=== PATIENT | female | born 1985 | race Asian ===

== ENCOUNTER 2020-12-05 17:27 | Emergency (ER) | payer OTHER, SELFPAY ==
--- NOTE | 2020-12-05 19:44 | PC.NURSE ---
CALLED PATIENT AT 1915 & 1930 FOR TRIAGE, NO RESPONSE.
== END 2020-12-05 21:08 | disposition left against medical advice (07) ==
PROVIDERS: Emergency Provider Emergency Medicine
DX: R10.9 Unspecified abdominal pain (principal)

== ENCOUNTER 2023-02-03 00:08 | Emergency (ER) | payer OTHER, SELFPAY ==
--- NOTE | ~2023-02-03 | CT_ITS ---
EXAMINATION: CT ABDOMEN AND PELVIS WITH CONTRAST CLINICAL INFORMATION: Possible abscess rectum 6:00 status post fissure surgery COMPARISON: 12/10/2019 TECHNIQUE: Multidetector volumetric images were obtained from the superior aspect of the liver through the pubic symphysis following administration 85 mL of Omnipaque 350 intravenous contrast. Sagittal and coronal reformatted images were obtained on the technologist's workstation. Oral contrast: No This CT examination was performed using dose optimization techniques as appropriate, variously including the following: *Automated exposure control *Adjustment of mA and/or kV according to patient size (this includes techniques or standardized protocols for targeted exams where dose is matched to indication/reason for exam; i.e. extremities or head) *Use of iterative reconstruction technique DLP: 691 mGy-cm FINDINGS: LUNG BASES: The visualized lung bases are unremarkable. LIVER, GALLBLADDER, AND BILIARY TREE: The liver is normal in size, shape, and attenuation. No focal hepatic lesion or biliary ductal dilatation is present. The gallbladder is unremarkable with no evidence of radiopaque gallstones, gallbladder wall thickening, or obvious pericholecystic inflammatory changes. PANCREAS: Unremarkable. SPLEEN: Unremarkable. ADRENAL GLANDS: Unremarkable. KIDNEYS AND URETERS: The kidneys are normal in size, shape, and attenuation. No hydronephrosis, hydroureter, or calculi seen. No perinephric stranding. BLADDER: Unremarkable. GASTROINTESTINAL TRACT: No evidence of bowel obstruction. There is a relatively linear hyperdense region posterior to the distal rectum measuring approximately 3.1 x 0.6 cm on image 95/516 with surrounding soft tissue thickening. No low-density fluid collection is seen. No intra-abdominal free fluid or free air is identified. ABDOMINAL WALL: No significant hernia is appreciated. LYMPH NODES: Normal. VASCULAR: Unremarkable. PELVIC VISCERA: Patient is status post hysterectomy. OSSEOUS STRUCTURES: Unremarkable. CT/CT abdomen pelvis w IV con IMPRESSION: Relatively linear hyperdense region posterior to the distal rectum measuring approximately 3.1 x 0.6 cm with surrounding soft tissue thickening. Given the clinical history this may reflect postoperative sequelae or possibly a hyperdense collection. No low-density fluid collection is seen.
[2023-02-03 00:20] VITALS: BP 138/92; PULSE 77; RESP 18; TEMP 36.4; O2SAT 99; BMI 31.6
[2023-02-03 00:42] LABS: Basophils Percent Auto 0.3 % (0-2); Eosinophils Absolute Auto 0.1 X10*3/uL (0.0-0.4); Eosinophils Percent Auto 1.2 % (0-4); Hematocrit 39.8 % (37.0-47.0); Hemoglobin 12.9 g/dl (12.0-16.0); Imm Gran Abs Auto 0.02 X10*3/uL (0.00-0.03); Imm Gran Pct Auto 0.3 % (0.0-0.4); Lymphocytes Absolute Auto 2.3 X10*3/uL (1.2-4.9); Lymphocytes Percent Auto 34.7 % (20-40); MANUAL DIFF FLAG NO; Mean Corpuscular HGB Conc 32.4 g/dl (31.0-35.0); Mean Corpuscular Volume 86.5 fL (80.0-98.0); Mean Platelet Volume 9.8 fL (9.4-12.3); Monocytes Absolute Auto 0.4 X10*3/uL (0.1-1.2); Monocytes Percent Auto 5.8 % (2-11); Neutrophils Absolute Auto 3.8 x10*3/uL (2.0-8.3); Neutrophils Percent Auto 57.7 % (45-73); Platelet Count 287 X10*3/uL (160-400); Red Cell Distribution Width 12.1 % (11.0-16.0); White Blood Count 6.5 X10*3/uL (4.8-10.8)
[2023-02-03 01:04] LABS: Alanine Aminotransferase 16 U/L (0-31); Albumin Level 4.3 g/dL (3.5-5.0); Alkaline Phosphatase 49 U/L (39-117); Anion Gap 14 (12-20); Aspartate Amino Transferase 12 U/L (5-31); Bilirubin Total 0.3 mg/dL (0.0-1.0); Blood Urea Nitrogen 16 mg/dL (9-16); Calcium 9.6 mg/dL (8.4-10.2); Carbon Dioxide 23 mmol/L (22-29); Chloride 107 mmol/L (96-108); Estimated Glomerular Filt Rate > 60; Glucose Random 105 mg/dL (60-115); Potassium 4.2 mmol/L (3.3-5.1); Sodium 140 mmol/L (135-145)
[2023-02-03 02:31] VITALS: BP 105/71; PULSE 67; RESP 18; TEMP 36.6; O2SAT 97
--- NOTE | 2023-02-03 02:54 | PC.NURSE ---
Pt reports 10/10 aching rectal pain associated with BRB X1 day, abdominal pain 4/10 which is intermittent.VSS, IV placed #20 R-AC. call cote given to patient.
--- NOTE | 2023-02-03 04:29 | ED.ABDPAIN ---
HPI - Abdominal Pain General Chief Complaint: Abdominal Pain Stated Complaint: Rectal pain Time Seen by Provider: 02/03/23 04:13 Source: patient Mode of arrival: ambulatory Limitations: no limitations History of Present Illness HPI narrative: Patient comes to the emergency room complaining of anal pain. Patient states that approximately 2 months ago, patient had surgery for anal fissures. Since then, patient has not had any relief of pain in the rectal/anal area. Patient has been using topical lidocaine with nifedipine gel. Patient states that after having bowel movements she applies the cream and does help a bit, but she has constantly pain and pressure in the rectal area. Patient states that over last week she has had multiple episodes of rectal bleeding, minimal, sees blood work when wiping. Patient denies history of hemorrhoids. Patient has an appointment pending on February 19 with a colorectal surgeon at [facility]. Related Data Previous Rx's Medication Instructions Recorded oxycodone 5 mg tablet 5 mg PO BID PRN pain #7 tabs 02/03/23 polyethylene glycol 3350 17 17 g PO BID PRN laxative effect 02/03/23 gram/dose oral powder (Miralax) #238 grams pramoxine 1 % topical foam 1 appl VT TID #15 grams 02/03/23 (Proctofoam) Allergies Allergy/AdvReac Type Severity Reaction Status Date / Time No Known Allergies Allergy Unverified 02/03/23 00:28 [No Known Allergies*] Review of Systems Review of Systems Constitutional : No Weight loss, No Fever, No Chills, No Night Sweats, No Fatigue, No Malaise ENT/Mouth : No Hearing loss, No Ear Pain, No Nasal Congestion, No Sinus Pain, No Hoarseness, No sore throat, No Rhinorrhea, No Swallowing Difficulty Eyes: No Eye Pain, No Swelling, No Redness, No Foreign Body, No Discharge, No Vision Changes Cardiovascular : No Chest Pain, No SOB, No Dyspnea on Exertion, No Orthopnea, No Edema, No Palpitations Respiratory : No Cough, No Sputum, No Wheezing, No Smoke Exposure, No Dyspnea Gastrointestinal : No Nausea, No Vomiting, No Diarrhea, No Constipation, No abdominal Pain, complaining of mild rectal bleeding with wiping, complaining of severe perirectal pain Genitourinary : no irregular bleeding, No Dysuria, No Urinary Frequency, No Hematuria, No Urinary Incontinence, No Urgency, No Flank Pain, No Urinary Flow Changes, No Hesitancy Musculoskeletal : No joint pain, No Myalgias, No Joint Swelling Skin : No Skin Lesions, No rash Neuro : No Weakness, No Numbness, No Paresthesias, No Loss of Consciousness, No Dizziness, No Headache Psych : No Anxiety/Panic, No Depression, No SI/HI/AH/VH, No Social Issues, Heme/Lymph: No Bruising, No Bleeding,No Lymphadenopathy Endocrine : No Polyuria, No Polydipsia, No Temperature Intolerance [facility] Past Medical History Medical History (Updated 02/03/23 @ 06:20 by Meg Francis MD) Anal fissure Social History Social History Alcohol intake: never Smoked in Last 30 Days: No Use of substances other than those prescribed or required for medical reasons: No Advance Directives: No Advance Directives Information Provided: Yes Patient : No Physical Exam ED Vital Signs: Vital Signs - 24 hr 02/03/23 00:20 02/03/23 02:31 02/03/23 04:46 Temperature 97.6 F 97.8 F 97.7 F Pulse Rate 77 67 65 Respiratory Rate 18 18 12 Blood Pressure 138/92 H 105/71 104/70 Pulse Oximetry 99 97 96 Oxygen Delivery Method Room Air Room Air Room Air BMI result Body Mass Index 31.6 Const Other: Appearance: Alert. Oriented X3. No acute distress. Eyes: Pupils equal, round and reactive to light. ENT: Pharynx normal. Neck: Normal inspection. Neck supple. No lymph nodes noted. No crepitus CVS: Normal heart rate and rhythm. Pulses normal. Normal S1 and S2 Respiratory: No respiratory distress. Breath sounds normal. No Wheezing. No rales Abdomen: Soft and nontender. No rigidity. No distention. On rectal exam, patient has severe pain at the 6 o'clock position of the anus. There is a bit of serosanguineous drainage, mucus versus pus Skin: Skin warm and dry. Normal skin color. Normal skin turgor. Extremities: No lower extremity edema. No Lacerations. No Rash Neuro: Oriented X 3. No motor deficit. No sensory deficit. Moving all extremities. No slurred speech. CN 2 through 12 grossly intact Psych: calm, cooperative, normal affect Course Course Course Narrative: -patient's labs unremarkable. However, we will obtain a CT scan of the abdomen pelvis to rule out possible abscess in the perirectal area versus fistula. Medical Decision Making Medical Decision Making [facility] Narrative: -patient may have a fistula versus abscess. At this time, admission is being considered. -my interpretation of labs: White blood cell count within normal limits, no electrolyte abnormality -on physical exam, patient may have an abscess versus fistula at the 6 o'clock position of the anus. -we will start with a CT scan of the abdomen pelvis with IV contrast. -patient received 4 mg of IV morphine -my interpretation of CT scan: No bowel obstruction, no obvious fluid collection to indicate an abscess -I discussed the CT findings with the patient, does not seem that patient has an abscess or a fistula. Seems patient has scar tissue. -overall patient is feeling much better. Patient has not had any rectal bleeding in the ED. Patient instructed to follow up and call her surgeon today -patient will try Proctofoam at home Differential Diagnosis Differential Diagnoses: The differential diagnosis associated with the presentation includes (Perirectal fistula, abscess, fissure, external hemorrhoid, internal hemorrhoid) Admission/Observation Consideration of admission/observation: Escalation of care including admission/observation considered Lab Data [facility] Lab Attestation statement: I reviewed the patient's lab results. (White blood cell count within normal limits, unlikely that patient has an abscess) 02/03/23 00:34 02/03/23 00:34 Labs: Lab Results 02/03/23 02/03/23 02/03/23 Range/Units 00:34 00:34 04:51 WBC 6.5 (4.8-10.8) X10*3/uL RBC 4.60 (4.20-5.50) X10*6/uL Hgb 12.9 (12.0-16.0) g/dl Hct 39.8 (37.0-47.0) % MCV 86.5 (80.0-98.0) fL MCH 28.0 (27.0-33.0) pg MCHC 32.4 (31.0-35.0) g/dl RDW 12.1 (11.0-16.0) % Plt Count 287 (160-400) X10*3/uL MPV 9.8 (9.4-12.3) fL Immature Gran % (Auto) 0.3 (0.0-0.4) % Neut % (Auto) 57.7 (45-73) % Lymph % (Auto) 34.7 (20-40) % [place] % (Auto) 5.8 (2-11) % Eos % (Auto) 1.2 (0-4) % Baso % (Auto) 0.3 (0-2) % Lymph # (Auto) 2.3 (1.2-4.9) X10*3/uL [place] # (Auto) 0.4 (0.1-1.2) X10*3/uL Eos # (Auto) 0.1 (0.0-0.4) X10*3/uL Baso # (Auto) 0.0 (0.0-0.2) X10*3/uL Abs Immat Gran (auto) 0.02 (0.00-0.03) X10*3/uL Absolute Neuts (auto) 3.8 (2.0-8.3) x10*3/uL Absolute Nucleated RBC 0.000 (0.0-0.012) X10*3/uL Nucleated RBC % (auto) 0.0 (0.0-0.2) /100WBC Sodium 140 (135-145) mmol/L Potassium 4.2 (3.3-5.1) mmol/L Chloride 107 (96-108) mmol/L Carbon Dioxide 23 (22-29) mmol/L Anion Gap 14 (12-20) BUN 16 (9-16) mg/dL Creatinine 0.72 (0.5-1.4) mg/dL Estim Creat Clear Calc 113.0 Estimated GFR > 60 Random Glucose 105 (60-115) mg/dL Calcium 9.6 (8.4-10.2) mg/dL Total Bilirubin 0.3 (0.0-1.0) mg/dL AST 12 (5-31) U/L ALT 16 (0-31) U/L Alkaline Phosphatase 49 (39-117) U/L Total Protein 7.0 (6.5-8.0) g/dL Albumin 4.3 (3.5-5.0) g/dL Beta HCG, Quant < 2 mIU/mL Independent Interpretation I performed an independent interpretation of an: CT Scan Radiology Impression Discussion of test interpretation with radiology: I have reviewed the radiologist's reading. Radiologist Impression: FINDINGS: Osseous alignment is anatomic. There is dorsal soft tissue swelling and a possible osseous fragment dorsal to the proximal carpal row, raising concern for a triquetral fracture in the setting of trauma. No additional acute focal abnormality is seen. XR/XR wrist RT min 3V IMPRESSION: Possible triquetral fracture with associated dorsal soft tissue swelling. Correlation with point tenderness is recommended. Medications Administered Discontinued Medications Generic Name Dose Route Start Last Admin Trade Name Freq PRN Reason Stop Dose Admin Iohexol 85 ml 02/03/23 05:16 02/03/23 05:16 Iohexol 350 Mg/Ml 100 Ml Infus..Btl IV 02/03/23 05:17 85 ml ONCE ONE Administration Morphine Sulfate 4 mg 02/03/23 04:29 02/03/23 04:39 Morphine Sulfate 4 Mg/Ml Cartridge IVPUSH 02/03/23 04:30 4 mg ONCE ONE Administration Protocol Ondansetron HCl 4 mg 02/03/23 04:43 02/03/23 04:54 Ondansetron Hcl 4 Mg/2 Ml Vial IVPUSH 02/03/23 04:44 4 mg ONCE ONE Administration Critical Care Time Critical Care Time Critical Care Time: Yes Total Critical Care Time: 30 Attestation: I have personally provided critical care time. Time includes review of lab data, radiology results, discussion with consultants, and monitoring for potential decompensation. Intervention performed as documented. Discharge Plan Discharge Clinical Impression: Pain in rectum Patient Disposition: Home, Self-Care Instructions: Rectal Pain (ED) Additional Instructions: Please follow-up with your primary care physician tomorrow. If you have any worsening or new symptoms, please return to the emergency room or call 911 Prescriptions: New pramoxine [Proctofoam] 1 % foam 1 appl VT TID Qty: 15 0RF oxycodone 5 mg tablet 5 mg PO BID PRN (Reason: pain) Qty: 7 0RF Rx Instructions: Partial Fill upon patient request. polyethylene glycol 3350 [Miralax] 17 gram/dose powder 17 g PO BID PRN (Reason: laxative effect) Qty: 238 0RF
[2023-02-03] MEDS: Morphine Sulfate 4 MG/ML CARTRIDGE IVPUSH (04:39)
[2023-02-03 04:46] VITALS: BP 104/70; PULSE 65; RESP 12; TEMP 36.5; O2SAT 96
[2023-02-03] MEDS: ondansetron HCL 4 MG/2 ML VIAL IVPUSH (04:54)
[2023-02-03] MEDS: iohexoL 350 MG/ML 100 ML INFUS..BTL 85 ML IV (05:16)
[2023-02-03 05:26] LABS: HCG Quantitative < 2 mIU/mL
[2023-02-03 06:18] VITALS: BP 92/45; PULSE 65; RESP 12; O2SAT 96
== END 2023-02-03 06:37 | disposition home or self-care (01) ==
PROVIDERS: Emergency Provider Emergency Medicine
DX: K62.89 Other specified diseases of anus and rectum (principal); R10.9 Unspecified abdominal pain; Z79.899 Other long term (current) drug therapy
CPT/HCPCS: 36415; 74177; 80053; 84702; 85025; 96374; 96375; 99284; J2270; J2405; Q9967